=== PATIENT | male | born 1995 | race Caucasian/White ===

== ENCOUNTER 2019-01-28 01:36 | Emergency (ER) | payer MEDICAID ==
[2019-01-28] MEDS: morphine 4 MG/ML VIAL IV (02:06)
[2019-01-28] MEDS: ONDANSETRON 4 MG INJ IV (02:06)
[2019-01-28] MEDS: KETOROLAC 30 MG INJ IV (02:06)
[2019-01-28] MEDS: SOD CHLORIDE 0.9% 1,000 ML IV (02:11)
[2019-01-28 02:15] LABS: ADD MAN DIFF? NO
[2019-01-28 02:17] LABS: BASOPHILS % 0.4 % (0.0-2.0); EOSINOPHILS # 0.4 10^3/ul (0.0-0.5); EOSINOPHILS % 3.8 % (0.0-7.0); HEMATOCRIT 40.9 % (42.0-52.0); HEMOGLOBIN 13.6 g/dl (14.0-18.0); LYMPHOCYTES # 2.5 10^3/ul (0.8-2.9); LYMPHOCYTES % 23.2 % (15.0-51.0); MEAN CORPUSCULAR HEMOGLOBIN 29.3 pg (29.0-33.0); MEAN CORPUSCULAR HGB CONC 33.3 g/dl (32.0-37.0); MEAN CORPUSCULAR VOLUME 88.1 fl (82.0-101.0); MEAN PLATELET VOLUME 9.3 fl (7.4-10.4); MONOCYTE # 0.6 10^3/ul (0.3-0.9); MONOCYTES % 5.9 % (0.0-11.0); NEUTROPHILS % 66.4 % (39.0-77.0); PLATELET COUNT 260 10^3/UL (140-415); RED BLOOD COUNT 4.64 10^6/ul (4.70-6.10); RED CELL DISTRIBUTION WIDTH 13.3 % (11.5-14.5)
[2019-01-28 02:17] LABS: WHITE BLOOD COUNT 10.6 10^3/ul (4.8-10.8)
[2019-01-28 02:39] LABS: ADD UMIC NO; UR ASCORBIC ACID NEGATIVE (NEGATIVE); UR BILIRUBIN (Dip) NEGATIVE (NEGATIVE); UR BLOOD (Dip) NEGATIVE (NEGATIVE); UR CLARITY CLEAR (CLEAR); UR COLOR YELLOW (YELLOW); UR GLUCOSE (Dip) NEGATIVE (NEGATIVE); UR KETONES (Dip) NEGATIVE (NEGATIVE); UR LEUKOCYTE ESTERASE (Dip) NEGATIVE Leu/ul (NEGATIVE); UR NITRITE (Dip) NEGATIVE (NEGATIVE); UR SPECIFIC GRAVITY (Dip) 1.027 (1.003-1.030); UR TOTAL PROTEIN (Dip) NEGATIVE (NEGATIVE); UR UROBILINOGEN (Dip) NEGATIVE (NEGATIVE)
[2019-01-28 02:46] LABS: ALANINE AMINOTRANSFERASE 35 IU/L (13-69); ALBUMIN 4.4 g/dl (3.3-4.9); ALBUMIN/GLOBULIN RATIO 1.18; ALKALINE PHOSPHATASE 99 IU/L (42-121); ANION GAP 10 (5-13); ASPARTATE AMINO TRANSFERASE 38 IU/L (15-46); BILIRUBIN,INDIRECT 0.8 mg/dl (0-1.1); BILIRUBIN,TOTAL 0.8 mg/dl (0.2-1.3); BLOOD UREA NITROGEN 19 mg/dl (7-20); CARBON DIOXIDE 26 mmol/L (21-31); CHLORIDE 107 mmol/L (97-110); CREATININE 1.35 mg/dl (0.61-1.24); Estimated GFR > 60 mL/min (>60); GLUCOSE 122 mg/dl (70-220); LIPASE 134 U/L (23-300); POTASSIUM 3.9 mmol/L (3.5-5.1); SODIUM 143 mmol/L (135-144); TOTAL PROTEIN 8.1 g/dl (6.1-8.1)
[2019-01-28] MEDS: POLYETHYLENE GLYCOL 17 GM PACKET PO (04:32)
== END 2019-01-28 04:35 | disposition home or self-care (01) ==
LOC: FTE 01:36
DX: R10.31 Right lower quadrant pain (principal); R79.89 Other specified abnormal findings of blood chemistry
CPT/HCPCS: 36415; 74176; 76705; 80053; 81003; 83690; 85025; 96361; 96374; 96375; 99285-25

== ENCOUNTER 2019-01-28 16:25 | Emergency (ER) | payer MEDICAID ==
[2019-01-28] MEDS: ACETAMINOPHEN 500 MG TAB PO (18:46)
[2019-01-28] MEDS: ONDANSETRON (ODT) 4 MG TAB ODT (18:46)
== END 2019-01-28 19:35 | disposition home or self-care (01) ==
LOC: FTE 16:25
DX: R10.9 Unspecified abdominal pain (principal)
CPT/HCPCS: 99283; Z7502